=== PATIENT | female | born 1995 ===

== ENCOUNTER 2017-05-03 14:43 | Emergency (ER) | payer OTHER ==
[2017-05-03 15:04] VITALS: BP 144/82; PULSE 88; RESP 20; TEMP 98; O2SAT 98
--- NOTE | 2017-05-03 15:20 | C.PDOC ---
History Of Present Illness 21 y/o female presents to ED for evaluation on general body itchy rash gradually developing x3 days ago. Patient states she was "eating a lot of seafood and fish for past week while [place] vacation on [place]" . Otherwise, pt denies previous Hx of food allergies or any other allergies, denies known allergen exposure. Patient denies fever, chills, headache, dizziness, throat swelling or sore throat, dyspnea, sob, wheezing, abd. pain, N/V/D, or any other complaints at this time. Time Seen by Provider: 05/03/17 15:09 Chief Complaint (Nursing): Abnormal Skin Integrity History Per: Patient History/Exam Limitations: no limitations Onset/Duration Of Symptoms: Days Current Symptoms Are (Timing): Still Present Past Medical History Reviewed: Historical Data, Nursing Documentation, Vital Signs Vital Signs: Last Vital Signs Temp 98.0 F 05/03/17 15:02 Pulse 88 05/03/17 15:02 Resp 20 05/03/17 15:02 BP 144/82 05/03/17 15:02 Pulse Ox 98 05/03/17 15:43 Family History: States: No Known Family Hx - Social History Hx Alcohol Use: No Hx Substance Use: No Review Of Systems Except As Marked, All Systems Reviewed And Found Negative. Constitutional: Negative for: Fever ENT: Negative for: Throat Swelling Respiratory: Negative for: Shortness of Breath Skin: Positive for: Rash Physical Exam - Physical Exam Appears: Well, Non-toxic, No Acute Distress Skin: Normal Color, Warm, Rash (scaterred vesicular rash to B/L fingers and hands, inner aspect of B/L feet, anterior abdomenal wall. No flactulance, no erythema, no proximal streaking.) Nose: No Discharge Oral Mucosa: Moist, No Drooling, No Trismus Tongue: Normal Appearing, No Swelling Lips: Normal Appearing, No Swelling Throat: Normal, No Erythema, No Exudate, No Drooling, Other (Uvula midline, no edema.) Neck: Supple Cardiovascular: Rhythm Regular Respiratory: No Decreased Breath Sounds, No Accessory Muscle Use, No Rales, No Rhonchi, No Stridor, No Wheezing Gastrointestinal/Abdominal: Soft, No Tenderness, No Distention, No Guarding Extremity: No Pedal Edema, No Deformity Pulses: Left Radial: Normal, Right Radial: Normal, Left Dorsalis Pedis: Normal, Right Dorsalis Pedis: Normal Neurological/Psych: Oriented x3, Normal Motor, Normal Sensation, Normal Reflexes ED Course And Treatment O2 Sat by Pulse Oximetry: 98 (RA) Pulse Ox Interpretation: Normal Progress Note: On re-evaluation, pt is afebrile, hemodynamicaly stable. non- toxic. PulseOx 98% RA. neck: Supple, (-) meningeal sign. ENT: no acute findings Uvula midline, no edema. Lungs: CTA B/L, BS equal B/L. Abd: benign. Skin: rash c/w contact dermatitis vs allergic reaction. Pt advised and ref. to f/u with PMD and Allergen in 2-3 days for re-eavl. return to ED if any worsening or new changes. Disposition Counseled Patient/Family Regarding: Studies Performed, Diagnosis, Need For Followup, Rx Given - Disposition Referrals: Malgorzata Betancourt MD [Family Provider] - Disposition: HOME/ ROUTINE Disposition Time: 15:40 Condition: STABLE Additional Instructions: Take medication as prescribed Encourage fluids Avoid food possible can cause allergy Follow up with PMD, [facility] in 2-3 days for re-evaluation. Return to ED if any worsening or new changes. Prescriptions: DiphenhydrAMINE [Benadryl] 25 mg PO BID #10 cap Famotidine [Pepcid] 20 mg PO BID #10 tab Prednisone [Deltasone] 40 mg PO DAILY #6 tablet Instructions: Food Allergy (ED) Print Language: MAORI - Clinical Impression Clinical Impression: Rash, Allergy - PA / [employer] / Resident Statement MD/DO has reviewed & agrees with the documentation as recorded. - Scribe Statement The provider has reviewed the documentation as recorded by the Willie Solo All medical record entries made by the Willie were at my direction and personally dictated by me. I have reviewed the chart and agree that the record accurately reflects my personal performance of the history, physical exam, medical decision making, and the department course for this patient. I have also personally directed, reviewed, and agree with the discharge instructions and disposition.
== END 2017-05-03 16:08 | disposition home or self-care (01) ==
LOC: C.ER 14:43
DX: R21 Rash and other nonspecific skin eruption (principal)